=== PATIENT | male | born 1980 | race Caucasian/White ===

== ENCOUNTER 2016-03-31 16:26 | Emergency (ER) | payer MEDICAID ==
[2016-03-31 16:43] VITALS: BP 138/85; PULSE 91; TEMP 98.1; BMI 27.0
--- NOTE | 2016-03-31 17:05 | EDPRACDOC ---
- General Information Chief Complaint: Hand Pain Stated Complaint: RT HAND PAIN Time Seen by Provider: 03/31/16 16:46 Home Medications: Home Medications TOPIRAMATE (Anticonvulsant) [Topamax] 100 mg PO BID 11/14/14 Multivitamin [Multivitamins] 1 cap PO DAILY 01/27/15 Court[place]ay-3 Fatty Acids/Fish Oil [Fish Oil 1,000 mg Capsule] 2 cap PO HS 01/27/15 Alprazolam [Xanax] 1 mg PO Q8H PRN 06/23/15 Gabapentin [Neurontin] 600 mg PO BID 09/16/15 Oxycodone HCl/Acetaminophen [Percocet 10-325 mg Tablet] 1 tab PO BID 09/16/15 Prednisone [Deltasone, Orasone] 50 mg PO DAILY #5 tab 01/19/16 Promethazine [Phenergan] 25 mg PO Q8H PRN #30 tab 01/19/16 Quetiapine Fumarate [Seroquel] 50 mg PO DAILY 01/19/16 Allergies/Adverse Reactions: Allergies Allergy/AdvReac Type Severity Reaction Status Date / Time ketorolac tromethamine Allergy Severe Unknown Verified 01/19/16 19:36 [From Toradol] meloxicam [From Mobic] Allergy Severe Unknown Verified 01/19/16 19:36 tramadol Allergy Severe Unknown Verified 01/19/16 19:36 - History of Present Illness Onset: THURSDAY HPI: PT STATES THAT HE GOT ANGRY ON THURSDAY NIGHT AND "SLAPPED THE DOOR FRAME" WITH HIS RIGHT HAND, STATES HE HIT THE DOOR FRAME WITH HIS PALM OPEN, COMPLAINS OF PAIN AND SWELLING TO HAND AND WRIST, STATES CAN NOT BEND HIS RIGHT THUMB WITHOUT PAIN. PT STATES USING HIS USUAL PAIN MEDS WITHOUT RELIEF. Location: Reports: Right, Hand Dominant Hand: Right Mechanism: Reports: Blunt Trauma Circumstances: Reports: Other Tetanus Up To Date?: Yes Associated Signs & Symptoms: Reports: Hand Pain, Wrist Pain. Denies: Numbness, Weakness, Forearm Pain, Elbow Pain ED Past Medical History - History Reviewed Yes Nurses notes reviewed and agree except as marked - Patient Medical History Cardiac History: Reports: Hypercholesterolemia Respiratory History: Reports: Asthma Psychological History: Reports: Substance Use Disorder. Denies: Depression Additional Past Medical History: PRIOR MRSA. Chronic Pain Syndrome. NARCOTIC SEEKING BEHAVIOR Surgical History: Reports: Cholecystectomy, Tonsillectomy/Adnoidectomy, Other ( LEFT EYE PROSTHESIS) - Social Medical History Smoking Status: Heavy tobacco smoker (5 or more cigarettes/day or daily pipe/ cigar) Social History: Reports: Substance Use Disorder EDM Review of Systems - Review of Systems Neurological: negative: Dizziness, Numbness, Weakness Musculoskeletal: Hand, Wrist Integumentary: No Symptoms Reported - Physical Exam Constitutional: Alert (Awake), No apparent distress Oriented to: Time, Person, Place Last recorded Vital Signs: Last Vital Signs Temp 98.1 F 03/31/16 16:43 Pulse 91 03/31/16 16:43 Resp 20 03/31/16 16:43 BP 138/85 03/31/16 16:43 Pulse Ox 100 03/31/16 16:43 Oxygen Pulse Oxygen Saturation 100 O2 Device Room Air Oxygen Flow Rate Fraction of Inspired Oxygen ( FIO2) - HEENT Head: Normal ( normocephalic) - Integumentary Skin: Normal, Warm, Dry Lymphatics: Normal (no adenopathy) - Neurologic Memory Impaired: Normal Motor Function: Normal (Normal tone, Pulses 2+ No cyanosis or edema, FROM) Cranial Nerve: Normal (CN II-X11 intact sensation, strength 5/5) Cerebellar: Normal Mood Description: Normal Perception: Normal ED Hand Problem Physical Exam - Musculoskeletal Hand: Limited ROM, Moderate Tenderness. negative: Swelling, Deformity Wrist: Limited ROM, Moderate Tenderness. negative: Swelling, Deformity Digit: Normal. negative: Swelling, Deformity Digit Strength: Flexion (PAIN WITH FLEXION OF FINGERS OF RIGHT HAND) Nail: Normal Nailbed: Normal Soft Tissue: Normal Distal Function/Circulation: Normal, Capillary Refill. negative: Motor Deficit , Pulse Deficit, Sensory Deficit - Integumentary Skin: Normal - Differential Diagnosis Fracture, Sprain - Diagnostic Imaging RIGHT HAND Image interpreted by: Radiologist RIGHT HAND - COMPLETE 3+ VIEW COMPARISON: 04/08/2015 FINDINGS: There is no evidence of fracture or dislocation. There is no evidence of arthropathy or other focal bone abnormality. Soft tissues are unremarkable. IMPRESSION: Negative. RIGHT WRIST Image interpreted by: Radiologist RIGHT WRIST - COMPLETE 3+ VIEW COMPARISON: None. FINDINGS: There is no evidence of fracture or dislocation. There is no evidence of arthropathy or other focal bone abnormality. Soft tissues are unremarkable. IMPRESSION: No acute osseous injury of the right wrist. Decision Time to Discharge: 17:23 - Departure Disposition: Home Condition: Stable Final Diagnosis: Right hand pain Instructions: RICE: Routine Care for Injuries Education/Counseling Given To: Patient Education/Counseling Given Regarding: Diagnosis, Treatment, Prognosis, Follow Up Referrals: Wellington Tobias MD [Primary Care Provider] - One Week Additional Instructions: WEAR SPLINT NEEDED FOR PAIN, APPLY COLD COMPRESSES NEEDED FOR PAIN OR SWELLING, CONTINUE YOUR USUAL MEDICATIONS BEFORE.
--- NOTE | 2016-03-31 17:07 | DIRPT ---
CLINICAL DATA: Hit a wall. Pain. EXAM: RIGHT WRIST - COMPLETE 3+ VIEW COMPARISON: None. FINDINGS: There is no evidence of fracture or dislocation. There is no evidence of arthropathy or other focal bone abnormality. Soft tissues are unremarkable. IMPRESSION: No acute osseous injury of the right wrist. Electronically Signed By: Sarah Silverio On: 03/31/2016 17:04
--- NOTE | 2016-03-31 17:08 | DIRPT ---
CLINICAL DATA: Loss of temper past . Hit a door with is hand. Pain in the metacarpal region of the right hand and wrist. EXAM: RIGHT HAND - COMPLETE 3+ VIEW COMPARISON: 04/08/2015 FINDINGS: There is no evidence of fracture or dislocation. There is no evidence of arthropathy or other focal bone abnormality. Soft tissues are unremarkable. IMPRESSION: Negative. Electronically Signed By: aRine Peterson M.D. On: 03/31/2016 17:05
== END 2016-03-31 17:45 | disposition home or self-care (01) ==
LOC: EDMC 16:26
DX: M79.641 Pain in right hand (principal)
CPT/HCPCS: 99282